=== PATIENT | female | born 1975 | race Two or more races ===

== ENCOUNTER 2022-12-21 01:54 | Inpatient (IN) | payer OTHER ==
[~2022-12-21] VITALS: Ht 160 cm; Wt 86.2 kg
--- NOTE | 2022-12-21 02:26 | NUR ---
BIBS FROM HOME C/O ABD PAIN AND EXCESSIVE GAS X1700 NOT RELIEVED BY OTC MEDS. PT A/OX4. TOLERATING R/A WELL WITH NO RESP DISTRESS. CONNECTED PT TO POX AND MONITOR. SAFETY MEASURES IN PLACE.
[2022-12-21] MEDS ORDERED: MORPHINE SULFATE INJ 2 MG/ML DISP.SYRIN IV ONE ×3 (03:00→08:00)
[2022-12-21] MEDS ORDERED: ONDANSETRON HCL/PF 4 MG/2 ML VIAL IVP ONE (03:00)
--- NOTE | 2022-12-21 03:08 | NUR ---
FELIX #20G S/L BLOOD COLLECTED & SENT TO LAB
[2022-12-21] MEDS ORDERED: MORPHINE SULFATE INJ 4 MG/ML DISP.SYRIN ONE ×3 (03:11→08:16)
[2022-12-21] MEDS ORDERED: ONDANSETRON HCL/PF 4 MG/2 ML VIAL ONE (03:11)
[2022-12-21 03:17] LABS: BASOPHILS % (AUTO) 0.1 % (0.0-2.0); EOSINOPHILS % (AUTO) 0.2 % (0.0-6.0); HEMATOCRIT 37 % (33-45); HEMOGLOBIN 12.4 g/dL (11.5-14.8); LYMPHOCYTES # (AUTO) 1.2 K/uL (0.8-4.8); LYMPHOCYTES % (AUTO) 10.5 % (20.0-44.0); MEAN CORPUSCULAR HGB CONC 33 g/dl (31.0-36.0); MEAN CORPUSCULAR VOLUME 95 fL (82-100); MONOCYTES # (AUTO) 0.8 K/uL (0.1-1.30); MONOCYTES % (AUTO) 7.1 % (2.0-12.0); NEUTROPHILS # (AUTO) 9.7 K/uL (1.8-8.9); NEUTROPHILS % (AUTO) 82.1 % (43.0-81.0); PLATELET COUNT (AUTO) 281 K/uL (150-450); RED BLOOD CELL COUNT(AUTO) 3.95 MIL/uL (4.0-5.2); WHITE BLOOD COUNT (AUTO) 11.8 K/uL (4.3-11.0)
--- NOTE | 2022-12-21 03:17 | NUR ---
US TECH AT PT'S BEDSIDE
[2022-12-21 03:28] LABS: BILIRUBIN,URINE 1+ (NEGATIVE); COLOR,URINE YELLOW (YELLOW); LEUKOCYTE ESTERASE ,URINE NEGATIVE (NEGATIVE); NITRITE, URINE NEGATIVE (NEGATIVE); PROTEIN,URINE TRACE mg/dl (NEGATIVE); UGLUCOSE NEGATIVE (NEGATIVE); UROBILINOGEN,URINE 0.2 EU/dL (0.2)
[2022-12-21 03:33] LABS: BACTERIA,URINE Few /HPF (None Seen); MUCUS,URINE Many /LPF (None Seen); SQUAMOUS EPITHELIAL CELL,UR Many /HPF (None Seen); WBC,URINE 0-2 /HPF (0-3)
[2022-12-21 03:34] LABS: CREATININE 0.8 mg/dL (0.6-1.3); POTASSIUM 3.3 mmol/L (3.5-5.1)
[2022-12-21 03:39] LABS: ALBUMIN 3.5 g/dL (3.4-5.0); BILIRUBIN,DIRECT 0.1 mg/dL (0.0-0.2); BILIRUBIN,TOTAL 0.3 mg/dL (0.2-1.0); TOTAL PROTEIN, SERUM 7.5 g/dL (6.4-8.2)
[2022-12-21] MEDS ORDERED: KETOROLAC TROMETHAMINE INJ 30 MG/ML VIAL ONE (04:39)
[2022-12-21] MEDS ORDERED: KETOROLAC TROMETHAMINE INJ 30 MG/ML VIAL IV ONE (05:00)
--- NOTE | 2022-12-21 05:43 | NUR ---
DEANDRE [phone] (GIRLFRIEND)
[2022-12-21] MEDS ORDERED: CEFTRIAXONE 1GM BAG (ER ONLY) 1 GM/50 ML PIGGYBACK IV ONE (08:00)
[2022-12-21] MEDS ORDERED: FLAGYL/NS RTU 500 MG/100 ML PIGGYBACK IV ONE (08:00)
--- NOTE | 2022-12-21 08:01 | NUR ---
DR. MILLER [phone] THRASHER.
--- NOTE | 2022-12-21 08:10 | NUR ---
MOVE SHEET SUBMITTED.
[2022-12-21] MEDS ORDERED: METRONIDAZOLE 500MG/ NS 100ML 100 ML IV ONE (08:14)
[2022-12-21] MEDS ORDERED: CEFTRIAXONE 1GM BAG (ER ONLY) 50 ML IV ONE (08:14)
--- NOTE | 2022-12-21 08:20 | NUR ---
PHLEB AT BEDSIDE FOR BLOOD DRAW
--- NOTE | 2022-12-21 08:25 | NUR ---
COVID SWAB COLLECTED AND SENT TO LAB
[2022-12-21] MEDS ORDERED: THYR90TA12 PO (09:08)
--- NOTE | 2022-12-21 10:29 | NUR ---
DR. MARTINEZ SPEAKING WITH DR. THRASHER.
--- NOTE | 2022-12-21 11:10 | NUR ---
ROOM 323-2
--- NOTE | 2022-12-21 11:10 | NUR ---
[facility] CALLED CONTINUOUS WAVE OPERATOR PAGED.
--- NOTE | 2022-12-21 11:22 | NUR ---
PT REPORT GIVEN TO ROYAL LOPEZ
--- NOTE | 2022-12-21 11:43 | NUR ---
PT TAKEN TO MRI BY [facility] VIA WHEELCHAIR
--- NOTE | 2022-12-21 11:51 | NUR ---
[employer] CALLED COMPUTER CLERK PAGED SECOND TIME.
--- NOTE | 2022-12-21 12:46 | NUR ---
PT TRANSFERRED TO [facility] VIA WHEELCHAIR. WARM HANDOFF GIVEN TO ROYAL LOPEZ.
[2022-12-21] MEDS ORDERED: ACETAMINOPHEN 325 MG TABLET PO PRN (13:00)
[2022-12-21] MEDS ORDERED: ONDANSETRON HCL/PF 4 MG/2 ML VIAL IVP PRN (13:00)
[2022-12-21] MEDS ORDERED: MORPHINE SULFATE INJ 2 MG/ML DISP.SYRIN IV PRN (13:00)
[2022-12-21 13:14] VITALS: BP 128/71
--- NOTE | 2022-12-21 13:30 | NUR ---
RN ADMITTING NOTES PATIENT ARRIVED TO UNIT VIA WHEELCHAIR @1242, ABLE TO AMBULATE TO BED. A/Ox4, ON ROOM AIR, ABLE TO MAKE NEEDS KNOWN. NO S/S OF RESPIRATORY DISTRESS. PATIENT IV ACCESS R AC #20G, INTACT AND PATENT. PATIENT V/S TAKEN, STABLE, NO C/O OF PAIN OR DISCOMFORT. PATIENT ORIENTED TO STAFF AND UNIT. FULL BODY ASSESSMENT COMPLETED: CARDIAC WNL, RESPIRATORY WNL, GI/ CONTINENT, SKIN INTACT. SAFETY MEASURES IN PLACE: BED LOCKED AND IN LOWEST POSITION, HOB ELEVATED, CALL LIGHT WITHIN REACH, SIDE RAILS UPx2. WILL CONTINUE TO MONITOR.
[2022-12-21] MEDS: PANTOPRAZOLE 40 MG VIAL IV SCH (13:51)
[2022-12-21] MEDS: ENOXAPARIN SODIUM 40 MG/0.4 ML DISP.SYRIN SQ SCH (13:52)
[2022-12-21] MEDS: IV NS 0.9% 1,000 ML IV PRN (14:22)
[2022-12-21] MEDS: METRONIDAZOLE 500MG/ NS 100ML 500 MG in PREMIX 1 EA IV SCH ×2 (17:19→23:10)
--- NOTE | 2022-12-21 18:52 | NUR ---
MS RN CLOSING NOTES PATIENT RESTING IN BED, A/Ox4 ABLE TO MAKE NEEDS KNOWN. STABLE ON ROOM AIR, NO S/S OF RESPIRATORY DISTRESS. IV ACCESS R AC #20G RUNNING NS @75 ML/HR. PATIENT HAS NO C/O OF PAIN OR DISCOMFORT. PATIENT AMBULATORY, CONTINENT, HAS BATHROOM PRIVILEGE. SKIN INTACT. SAFETY MEASURES MAINTAINED: BED LOCKED AND IN LOWEST POSITION, HOB ELEVATED, CALL LIGHT WITHIN REACH, SIDE RAILS UPx2. WILL ENDORSE TO NEXT SHIFT ANY SARAH.
--- NOTE | 2022-12-21 19:26 | NUR ---
MS RN OPENING NOTES; RECEIVED PATIENT IN BED AA/Ox4 ABLE TO MAKE NEEDS KNOWN.FRIEND AT BEDSIDE, ON ROOM AIR BREANNA WELL,NO SOB/DISTRESS NOTED,NO COMPLAIN OF PAIN/DISCOMFORT AT THIS TIME,IV ACCESS R AC #20G RUNNING NS @75 ML/HR. PT AMBULATORY,STEADY GAIT,SAFETY MEASURES MAINTAINED: CALL LIGHT WITHIN REACH,WILL CONTINUE TO MONITOR.
[2022-12-21 20:00] VITALS: BP 108/68
[2022-12-21] MEDS: CEFEPIME 2 GM in IV D5W 100 ML IV SCH (21:09)
--- NOTE | 2022-12-21 23:49 | NUR ---
RN NOTE; TEXTED DOC,Fabiola CHRISTOPHERPT POTASSIUM 3.3 WITH A NEW ORDER KCL 20MEQ PO ONCE.
--- NOTE | 2022-12-21 23:53 | NUR ---
RN NOTE; TEXTED DOC,Fabiola CHRISTOPHERPT COMPLAINED CANNOT GET TO SLEEP.WITH A NEW ORDER AMBIEN 5MG PO PRN.
[2022-12-22] MEDS ORDERED: POTASSIUM CHLORIDE 20 MEQ TAB.PRT.SR PO ONE
[2022-12-22] MEDS ORDERED: ZOLPIDEM TARTRATE 5 MG TABLET PO PRN
[2022-12-22] MEDS: METRONIDAZOLE 500MG/ NS 100ML 500 MG in PREMIX 1 EA IV SCH ×2 (05:03→12:29)
[2022-12-22 05:49] LABS: BASOPHILS % (AUTO) 0.3 % (0.0-2.0); EOSINOPHILS % (AUTO) 1.7 % (0.0-6.0); HEMATOCRIT 38 % (33-45); HEMOGLOBIN 12.8 g/dL (11.5-14.8); LYMPHOCYTES # (AUTO) 1.3 K/uL (0.8-4.8); MEAN CORPUSCULAR HGB CONC 34 g/dl (31.0-36.0); MEAN CORPUSCULAR VOLUME 95 fL (82-100); MONOCYTES # (AUTO) 0.8 K/uL (0.1-1.30); MONOCYTES % (AUTO) 11.1 % (2.0-12.0); NEUTROPHILS # (AUTO) 4.7 K/uL (1.8-8.9); NEUTROPHILS % (AUTO) 67.9 % (43.0-81.0); PLATELET COUNT (AUTO) 256 K/uL (150-450); RED BLOOD CELL COUNT(AUTO) 4.01 MIL/uL (4.0-5.2)
[2022-12-22 06:03] LABS: CALCIUM, SERUM 8.6 mg/dL (8.5-10.1); CREATININE 0.8 mg/dL (0.6-1.3); MAGNESIUM 2.3 mg/dL (1.8-2.4); PHOSPHORUS 3.2 mg/dL (2.5-4.9); POTASSIUM 3.9 mmol/L (3.5-5.1)
--- NOTE | 2022-12-22 06:21 | NUR ---
MS RN CLOSING NOTES; PATIENT IN BED AA/Ox4 ABLE TO MAKE NEEDS KNOWN.ON ROOM AIR BREANNA WELL,SATTING 98%,NO SOB/DISTRESS NOTED,NO COMPLAIN OF PAIN/DISCOMFORT DURING SHIFT,DUE MEDS GIVEN ORDER,ALL NEEDS ATTENDED,IV ACCESS R AC #20G RUNNING NS @75 ML/HR. PT AMBULATORY,STEADY GAIT,SAFETY MEASURES MAINTAINED: CALL LIGHT WITHIN REACH,WILL ENDORSE TO NEXT SHIFT.
[2022-12-22] MEDS: IV NS 0.9% 1,000 ML IV PRN (07:25)
--- NOTE | 2022-12-22 07:25 | NUR ---
MS RN OPENING NOTES; RECEIVED PATIENT IN BED AA/Ox4 ABLE TO MAKE NEEDS KNOWN, ON ROOM AIR BREANNA WELL,NO SOB/DISTRESS NOTED,NO COMPLAIN OF PAIN/DISCOMFORT AT THIS TIME,IV ACCESS RAC #20G RUNNING NS @75 ML/HR. ON NPO AT THIS TIME AMBULATORY WITH STEADY GAIT,SAFETY MEASURES MAINTAINED: CALL LIGHT WITHIN REACH,WILL CONTINUE TO MONITOR.
[2022-12-22 08:00] VITALS: BP 124/79
[2022-12-22] MEDS: PANTOPRAZOLE 40 MG VIAL IV SCH (09:29)
[2022-12-22] MEDS: CEFEPIME 2 GM in IV D5W 100 ML IV SCH (09:43)
[2022-12-22] MEDS: ENOXAPARIN SODIUM 40 MG/0.4 ML DISP.SYRIN SQ SCH (12:30)
--- NOTE | 2022-12-22 13:30 | NUR ---
RN NOTES PATIENT WENT FOR HID SCAN
[2022-12-22 16:06] VITALS: BP 132/74
[2022-12-22] MEDS ORDERED: CIPR-262 PO (17:55)
--- NOTE | 2022-12-22 19:30 | NUR ---
OPERATING ENGINEER ORDER PATIENT IS WITH ORDER FOR DISCHARGE TO HOME PER DR PEDERSON , DISCHARGE PAPERS PREPARED AND DISCHARGE INSTRUCTIONS PROVIDE REGARDING MEDICATIONS , FOLLOW UP WITH PCP AND WHEN TO CALL 911 IN CASE OF EMERGENCY , PATIENT IS ALERT AND ORIENTED AND ABLE TO MAKE NEEDS KNOWN , ALL BELONGINGS WERE TAKE AND FORM WAS SIGNED , IV ACCESS REMOVED AND ID BAND REMOVED , GIRLFRIEND WILL PROVIDE TRANSPORTATION AND PATIENT LEFT WITH NO C/O OF PAIN AND DISCOMFORT , ALL NEEDS ATTENDED
[2022-12-23] MEDS ORDERED: PANTOPRAZOLE 40 MG/PACK PACK PO SCH (09:00)
== END 2022-12-23 10:11 | disposition home or self-care (01) | DRG 445 ==
LOC: ER 02:11 → MED 11:20
PROVIDERS: ADMIT Nurse Practitioner Acute Care; ATTEND Nurse Practitioner Acute Care
DX: K80.63 Calculus of gallbladder and bile duct with acute cholecystitis with obstruction (principal); E87.1 Hypo-osmolality and hyponatremia; R65.10 Systemic inflammatory response syndrome (SIRS) of non-infectious origin without acute organ dysfunction; E03.9 Hypothyroidism, unspecified; Z20.822 Contact with and (suspected) exposure to COVID-19; Z79.890 Hormone replacement therapy; E86.1 Hypovolemia; E87.6 Hypokalemia; D72.829 Elevated white blood cell count, unspecified; K76.0 Fatty (change of) liver, not elsewhere classified; E66.9 Obesity, unspecified; Z68.34 Body mass index [BMI] 34.0-34.9, adult; K59.00 Constipation, unspecified
CPT/HCPCS: 36415; 74181-TC; 76705-TC; 78226; 80048-TC; 80061-TC; 80076-TC; 81001; 83690-TC; 83735-TC; 84100-TC; 84703-TC; 85025-TC; 87040-TC; 87081-TC; A4216; A9537; C9113; C9803; G0378; J0692; J0696; J1650; J1885; J2270; J2405; J7030; J7060